=== PATIENT | male | born 1960 | race Caucasian/White ===

== ENCOUNTER 2019-04-20 14:04 | Inpatient (IN) ==
[2019-04-20] MEDS ORDERED: ACETAMINOPHEN 325 MG TABLET PO PRN (20:20)
[2019-04-20] MEDS ORDERED: ONDANSETRON 4 MG/2 ML VIAL IV PRN (20:20)
[2019-04-20] MEDS ORDERED: LACTULOSE 20 GM/30 ML UDCUP PO PRN (20:20)
[2019-04-20] MEDS ORDERED: BISACODYL 5 MG TABLET PO PRN (20:20)
[2019-04-20] MEDS ORDERED: MAGNESIUM SULF RIDER 4 GM in PREMIX 1 EACH IV PRN (20:20)
[2019-04-20] MEDS ORDERED: MAGNESIUM SULF RIDER 2 GM in PREMIX 1 EACH IV PRN (20:20)
[2019-04-20] MEDS ORDERED: guaiFENesin/DM ER 600-30 MG TABLET PO PRN (20:20)
[2019-04-20] MEDS ORDERED: MORPHINE 4 MG/1 ML VIAL IV PRN (20:20)
[2019-04-20] MEDS ORDERED: ENOXAPARIN 40 MG/0.4 ML SYRINGE SUBCUT SCH (21:00)
[2019-04-20] MEDS: dilTIAZem Drip 125 MG/125 ML PREMIX IV SCH (21:03)
[2019-04-20 21:40] LABS: Basophils # 0.1 10*3/uL (0.0-0.2); Basophils % 0.4 % (0.0-0.8); Eosinophils # 0.1 10*3/uL (0.0-0.87); Eosinophils % 0.7 % (0.00-10.9); Hematocrit 38.7 VOL% (42.0-52.0); Hemoglobin 12.8 GM/DL (14.0-18.0); Immature Granulocytes % 0.5 %; Immature Granulocytes Absolute 0.07 #; Lymphocytes # 1.9 10*3/uL (1.4-4.0); Lymphocytes % 14.1 % (21.2-54.2); Mean Corpuscular HGB Conc 33.1 GM/DL (32-36); Mean Corpuscular Volume 86.2 FL (87-102); Mean Platelet Volume 10.4 FL (9.6-12.0); Monocytes % 8.8 % (1.7-12.7); Neutrophils % 75.5 % (38.7-73.9); Platelet Count 282 T/CUMM (130-400); Red Blood Count 4.49 MC/CUMM (3.8-5.5); Red Cell Distribution Width 13.8 % (9.3-17.3); White Blood Count 13.3 T/CUMM (4-12)
[2019-04-20 21:45] LABS: Troponin I < 0.015 NG/ML (0.00-0.045)
[2019-04-20 21:57] LABS: Albumin 3.2 G/DL (3.4-5.0); Osmolality,Calculated 283.5 MOS/KG (273-304); Risk Ratio 5.09; Thyroid Stimulating Hormone 1.18 uIU/ml (0.358-3.74)
[2019-04-20] MEDS: ZALEPLON 5 MG CAPSULE PO PRN (23:03)
[2019-04-20] MEDS: diphenhydrAMINE CAP 25 MG CAPSULE PO PRN (23:13)
[2019-04-20 23:54] LABS: Troponin I < 0.015 NG/ML (0.00-0.045)
[2019-04-21 07:14] LABS: Albumin 2.9 G/DL (3.4-5.0); Bilirubin,Total 1.9 MG/DL (0.2-1.0); Calcium 8.2 MG/DL (8.5-10.1); Risk Ratio 4.81; Thyroid Stimulating Hormone 0.976 uIU/ml (0.358-3.74); Total Protein 6.2 G/DL (6.4-8.3)
[2019-04-21 07:47] LABS: Troponin I < 0.015 NG/ML (0.00-0.045)
[2019-04-21] MEDS ORDERED: AMIODARONE INJ 150 MG in DEXTROSE 5% 100 ML IV ONE (08:16)
[2019-04-21] MEDS ORDERED: AMIODARONE INJ 450 MG in DEXTROSE 5% 241 ML IV SCH (08:30)
[2019-04-21 09:11] LABS: Hepatitis B Core IgM Quant 0.08 Index; Hepatitis B Surface Ag Quant < 0.10 Index; Hepatitis B Surface Ag Result Negative (Negative); Hepatitis C Virus Ab Quant 0.05 Index; Hepatitis C Virus Ab Result Negative (Negative)
[2019-04-21] MEDS: lisinopriL 5 MG TABLET PO SCH (09:35)
[2019-04-21] MEDS: FUROSEMIDE 20 MG TABLET PO SCH (09:35)
[2019-04-21] MEDS: ENOXAPARIN 100 MG/ML SYRINGE SUBCUT SCH ×2 (09:35→22:13)
[2019-04-21] MEDS: POTASSIUM CHLORIDE 20 MEQ TABLET PO SCH (09:35)
[2019-04-21] MEDS: PANTOPRAZOLE 40 MG TABLET PO SCH (09:35)
[2019-04-21] MEDS: METOPROLOL SUCCINATE XL 50 MG TABLET PO SCH (09:35)
[2019-04-21] MEDS: CHOLECALCIFEROL 1,000 UNIT TABLET PO SCH (09:36)
[2019-04-21] MEDS: CLORAZEPATE 3.75 MG TABLET PO PRN ×2 (11:40→18:02)
[2019-04-21 13:29] LABS: % Iron Saturation 11.2 % (18-50)
[2019-04-21] MEDS ORDERED: FUROSEMIDE 40 MG/4 ML VIAL IV ONE (13:49)
[2019-04-21] MEDS: cefTRIAXone 1,000 MG in SYRINGE 1 EACH IV SCH (14:03)
[2019-04-21] MEDS ORDERED: ALBUTEROL/IPRATROPIUM 3 ML NEB RESP TX PRN (16:22)
[2019-04-21] MEDS: FUROSEMIDE 40 MG/4 ML VIAL IV SCH (16:30)
[2019-04-21] MEDS: SERTRALINE 25 MG TABLET PO SCH ×2 (16:42→22:18)
[2019-04-21] MEDS: INSULIN REGULAR 100 UNIT/ML SUBCUT SCH ×2 (16:49→22:16)
[2019-04-21] MEDS: AMIODARONE INJ 450 MG in DEXTROSE 5% 241 ML IV SCH (17:30)
[2019-04-21] MEDS ORDERED: ATORVASTATIN 10 MG TABLET PO SCH (21:00)
[2019-04-21] MEDS: FERROUS SULFATE 325 MG TABLET PO SCH (22:13)
[2019-04-21] MEDS: ZALEPLON 5 MG CAPSULE PO PRN (22:28)
[2019-04-22 04:31] LABS: Basophils % 0.1 % (0.0-0.8); Hematocrit 38.1 VOL% (42.0-52.0); Hemoglobin 12.5 GM/DL (14.0-18.0); Immature Granulocytes % 0.9 %; Immature Granulocytes Absolute 0.13 #; Lymphocytes # 1.4 10*3/uL (1.4-4.0); Lymphocytes % 9.4 % (21.2-54.2); Mean Corpuscular HGB Conc 32.8 GM/DL (32-36); Mean Corpuscular Volume 85.8 FL (87-102); Mean Platelet Volume 10.6 FL (9.6-12.0); Monocytes % 7.2 % (1.7-12.7); Neutrophils % 82.4 % (38.7-73.9); Platelet Count 294 T/CUMM (130-400); Red Blood Count 4.44 MC/CUMM (3.8-5.5); Red Cell Distribution Width 14.1 % (9.3-17.3); White Blood Count 14.4 T/CUMM (4-12)
[2019-04-22] MEDS: AMIODARONE INJ 450 MG in DEXTROSE 5% 241 ML IV SCH ×2 (05:28→21:14)
[2019-04-22 07:57] LABS: Calcium 8.1 MG/DL (8.5-10.1); Osmolality,Calculated 276.2 MOS/KG (273-304)
[2019-04-22] MEDS ORDERED: metOLazone 5 MG TABLET PO SCH (09:00)
[2019-04-22] MEDS: lisinopriL 5 MG TABLET PO SCH (10:33)
[2019-04-22] MEDS: FERROUS SULFATE 325 MG TABLET PO SCH ×2 (10:34→20:59)
[2019-04-22] MEDS: ENOXAPARIN 100 MG/ML SYRINGE SUBCUT SCH ×2 (10:34→20:59)
[2019-04-22] MEDS: PANTOPRAZOLE 40 MG TABLET PO SCH (10:34)
[2019-04-22] MEDS: POTASSIUM CHLORIDE 20 MEQ TABLET PO SCH (10:34)
[2019-04-22] MEDS: CHOLECALCIFEROL 1,000 UNIT TABLET PO SCH (10:34)
[2019-04-22] MEDS: METOPROLOL SUCCINATE XL 50 MG TABLET PO SCH (10:34)
[2019-04-22] MEDS: dilTIAZem Drip 125 MG/125 ML PREMIX IV SCH ×2 (10:35→23:49)
[2019-04-22] MEDS: INSULIN REGULAR 100 UNIT/ML SUBCUT SCH ×4 (10:35→20:57)
[2019-04-22] MEDS: POLYETHYLENE GLYCOL POWDER 17 GM PACK PO SCH (10:37)
[2019-04-22] MEDS: FUROSEMIDE 40 MG/4 ML VIAL IV SCH ×2 (11:28→17:32)
[2019-04-22] MEDS: cefTRIAXone 1,000 MG in SYRINGE 1 EACH IV SCH (12:56)
[2019-04-22 18:40] LABS: Apearance,Urine CLEAR (Clear); Bilirubin,Urine Negative (Negative); Blood, Urine Negative (Negative); Glucose,Urine (UA) Negative (Negative); Hyaline Casts,Urine 53 /LPF (0-3); Ketones,Urine Negative (Negative); Mucus,Urine Occasional /LPF (Occasional); Nitrite,Urine Negative (Negative); Protein,Urine Negative; RBC,Urine <1 /HPF (0-4); Urine Color Yellow (Yellow); Urine Specific Gravity 1.006 (1.001-1.035); Urine Urobilinogen < 2.0 EU/DL (0.2-1.0); WBC,Urine <1 /HPF (0-6)
[2019-04-22] MEDS: ZALEPLON 5 MG CAPSULE PO PRN ×2 (20:59→23:23)
[2019-04-22] MEDS: SERTRALINE 25 MG TABLET PO SCH (20:59)
[2019-04-23 05:51] LABS: Basophils % 0.1 % (0.0-0.8); Eosinophils % 0.1 % (0.00-10.9); Hematocrit 39.5 VOL% (42.0-52.0); Hemoglobin 13.2 GM/DL (14.0-18.0); Immature Granulocytes Absolute 0.14 #; Lymphocytes # 1.5 10*3/uL (1.4-4.0); Lymphocytes % 10.5 % (21.2-54.2); Mean Corpuscular HGB Conc 33.4 GM/DL (32-36); Mean Corpuscular Volume 86.1 FL (87-102); Mean Platelet Volume 10.3 FL (9.6-12.0); Monocytes % 6.7 % (1.7-12.7); NRBC # 0.04 10*3/uL; Neutrophils % 81.6 % (38.7-73.9); Platelet Count 322 T/CUMM (130-400); Red Blood Count 4.59 MC/CUMM (3.8-5.5); Red Cell Distribution Width 14.3 % (9.3-17.3); White Blood Count 14.5 T/CUMM (4-12)
[2019-04-23 06:20] LABS: Calcium 8.2 MG/DL (8.5-10.1); Osmolality,Calculated 277.4 MOS/KG (273-304)
[2019-04-23] MEDS: INSULIN REGULAR 100 UNIT/ML SUBCUT SCH (07:42)
[2019-04-23] MEDS ORDERED: DIGOXIN 0.25 MG TABLET PO ONE (07:43)
[2019-04-23] MEDS: POTASSIUM CHLORIDE 20 MEQ TABLET PO SCH (09:04)
[2019-04-23] MEDS: AMIODARONE 200 MG TABLET PO SCH ×2 (09:05→21:17)
[2019-04-23] MEDS: FERROUS SULFATE 325 MG TABLET PO SCH ×2 (09:05→21:18)
[2019-04-23] MEDS: CHOLECALCIFEROL 1,000 UNIT TABLET PO SCH (09:06)
[2019-04-23] MEDS: lisinopriL 5 MG TABLET PO SCH (09:06)
[2019-04-23] MEDS: METOPROLOL SUCCINATE XL 50 MG TABLET PO SCH (09:06)
[2019-04-23] MEDS: metOLazone 5 MG TABLET PO SCH (09:07)
[2019-04-23] MEDS: PANTOPRAZOLE 40 MG TABLET PO SCH (09:07)
[2019-04-23] MEDS: ENOXAPARIN 100 MG/ML SYRINGE SUBCUT SCH ×2 (09:08→21:18)
[2019-04-23] MEDS: FUROSEMIDE 40 MG/4 ML VIAL IV SCH ×2 (09:08→15:33)
[2019-04-23] MEDS: POLYETHYLENE GLYCOL POWDER 17 GM PACK PO SCH (09:12)
[2019-04-23] MEDS: DOBUTamine 500 MG/250 ML PREMIX IV SCH (10:15)
[2019-04-23] MEDS: DIGOXIN 0.25 MG TABLET PO SCH (13:32)
[2019-04-23] MEDS: POTASSIUM CHLORIDE 20 MEQ TABLET PO PRN (16:33)
[2019-04-23] MEDS: dilTIAZem Drip 125 MG/125 ML PREMIX IV SCH (20:30)
[2019-04-23] MEDS: diphenhydrAMINE CAP 25 MG CAPSULE PO PRN (21:23)
[2019-04-24 05:00] LABS: Basophils % 0.3 % (0.0-0.8); Eosinophils # 0.1 10*3/uL (0.0-0.87); Eosinophils % 0.8 % (0.00-10.9); Hemoglobin 14.7 GM/DL (14.0-18.0); Immature Granulocytes Absolute 0.11 #; Lymphocytes # 1.5 10*3/uL (1.4-4.0); Lymphocytes % 13.9 % (21.2-54.2); Mean Corpuscular HGB Conc 33.4 GM/DL (32-36); Mean Corpuscular Volume 84.9 FL (87-102); Mean Platelet Volume 10.5 FL (9.6-12.0); Monocytes % 7.9 % (1.7-12.7); NRBC # 0.02 10*3/uL; Neutrophils % 76.1 % (38.7-73.9); Platelet Count 281 T/CUMM (130-400); Red Blood Count 5.18 MC/CUMM (3.8-5.5)
[2019-04-24 05:46] LABS: Calcium 8.7 MG/DL (8.5-10.1); Osmolality,Calculated 276.2 MOS/KG (273-304)
[2019-04-24 05:54] LABS: Albumin 3.1 G/DL (3.4-5.0); Bilirubin,Direct 0.41 MG/DL (0.0-0.20); Bilirubin,Total 2.4 MG/DL (0.2-1.0); Total Protein 6.6 G/DL (6.4-8.3)
[2019-04-24] MEDS: POTASSIUM CHLORIDE 20 MEQ TABLET PO SCH (08:31)
[2019-04-24] MEDS: metOLazone 5 MG TABLET PO SCH (08:32)
[2019-04-24] MEDS: POTASSIUM CHLORIDE 20 MEQ TABLET PO PRN ×3 (08:32→15:09)
[2019-04-24] MEDS: CHOLECALCIFEROL 1,000 UNIT TABLET PO SCH (08:33)
[2019-04-24] MEDS: FERROUS SULFATE 325 MG TABLET PO SCH ×2 (08:33→20:44)
[2019-04-24] MEDS: AMIODARONE 200 MG TABLET PO SCH ×2 (08:33→20:44)
[2019-04-24] MEDS: METOPROLOL SUCCINATE XL 50 MG TABLET PO SCH (08:34)
[2019-04-24] MEDS: ENOXAPARIN 100 MG/ML SYRINGE SUBCUT SCH ×2 (08:34→20:44)
[2019-04-24] MEDS: PANTOPRAZOLE 40 MG TABLET PO SCH (08:34)
[2019-04-24] MEDS: FUROSEMIDE 40 MG/4 ML VIAL IV SCH ×2 (08:35→16:52)
[2019-04-24] MEDS: lisinopriL 5 MG TABLET PO SCH (08:35)
[2019-04-24] MEDS: POLYETHYLENE GLYCOL POWDER 17 GM PACK PO SCH (08:35)
[2019-04-24] MEDS: DOBUTamine 500 MG/250 ML PREMIX IV SCH ×2 (09:46→12:44)
[2019-04-24] MEDS ORDERED: DIGOXIN 0.5 MG/2 ML AMP IV ONE (10:09)
[2019-04-24] MEDS: DIGOXIN 0.25 MG TABLET PO SCH (13:58)
[2019-04-24] MEDS: dilTIAZem Drip 125 MG/125 ML PREMIX IV SCH (20:44)
[2019-04-24] MEDS: diphenhydrAMINE CAP 25 MG CAPSULE PO PRN (20:48)
[2019-04-25 05:06] LABS: Basophils % 0.2 % (0.0-0.8); Eosinophils % 0.3 % (0.00-10.9); Hematocrit 49.1 VOL% (42.0-52.0); Hemoglobin 16.4 GM/DL (14.0-18.0); Immature Granulocytes % 1.2 %; Immature Granulocytes Absolute 0.15 #; Lymphocytes # 1.3 10*3/uL (1.4-4.0); Lymphocytes % 10.7 % (21.2-54.2); Mean Corpuscular HGB Conc 33.4 GM/DL (32-36); Mean Corpuscular Volume 84.2 FL (87-102); Monocytes % 9.7 % (1.7-12.7); Neutrophils % 77.9 % (38.7-73.9); Platelet Count 311 T/CUMM (130-400); Red Blood Count 5.83 MC/CUMM (3.8-5.5); Red Cell Distribution Width 14.6 % (9.3-17.3); White Blood Count 12.3 T/CUMM (4-12)
[2019-04-25 05:49] LABS: Calcium 8.8 MG/DL (8.5-10.1); Osmolality,Calculated 272.8 MOS/KG (273-304)
[2019-04-25] MEDS: CHOLECALCIFEROL 1,000 UNIT TABLET PO SCH (09:18)
[2019-04-25] MEDS: ENOXAPARIN 100 MG/ML SYRINGE SUBCUT SCH ×2 (09:18→20:38)
[2019-04-25] MEDS: POTASSIUM CHLORIDE 20 MEQ TABLET PO SCH (09:18)
[2019-04-25] MEDS: metOLazone 5 MG TABLET PO SCH (09:18)
[2019-04-25] MEDS: AMIODARONE 200 MG TABLET PO SCH ×2 (09:19→20:37)
[2019-04-25] MEDS: lisinopriL 5 MG TABLET PO SCH (09:19)
[2019-04-25] MEDS: FERROUS SULFATE 325 MG TABLET PO SCH ×2 (09:20→20:38)
[2019-04-25] MEDS: METOPROLOL SUCCINATE XL 50 MG TABLET PO SCH (09:20)
[2019-04-25] MEDS: PANTOPRAZOLE 40 MG TABLET PO SCH (09:20)
[2019-04-25] MEDS: POTASSIUM CHLORIDE 20 MEQ TABLET PO PRN ×2 (09:20→11:09)
[2019-04-25] MEDS: FUROSEMIDE 40 MG/4 ML VIAL IV SCH ×2 (09:23→16:50)
[2019-04-25] MEDS: POLYETHYLENE GLYCOL POWDER 17 GM PACK PO SCH (09:23)
[2019-04-25] MEDS: DOBUTamine 500 MG/250 ML PREMIX IV SCH (12:56)
[2019-04-25] MEDS: DIGOXIN 0.25 MG TABLET PO SCH (13:58)
[2019-04-25] MEDS: diphenhydrAMINE CAP 25 MG CAPSULE PO PRN (20:38)
[2019-04-26 04:12] LABS: Basophils % 0.3 % (0.0-0.8); Eosinophils # 0.1 10*3/uL (0.0-0.87); Eosinophils % 0.8 % (0.00-10.9); Hematocrit 52.4 VOL% (42.0-52.0); Hemoglobin 17.5 GM/DL (14.0-18.0); Immature Granulocytes % 1.3 %; Immature Granulocytes Absolute 0.18 #; Lymphocytes # 1.8 10*3/uL (1.4-4.0); Lymphocytes % 13.4 % (21.2-54.2); Mean Corpuscular HGB Conc 33.4 GM/DL (32-36); Mean Corpuscular Volume 84.1 FL (87-102); Mean Platelet Volume 9.7 FL (9.6-12.0); Monocytes % 9.7 % (1.7-12.7); Neutrophils % 74.5 % (38.7-73.9); Platelet Count 384 T/CUMM (130-400); Red Blood Count 6.23 MC/CUMM (3.8-5.5); Red Cell Distribution Width 15.1 % (9.3-17.3); White Blood Count 13.5 T/CUMM (4-12)
[2019-04-26 05:00] LABS: Calcium 8.7 MG/DL (8.5-10.1); Osmolality,Calculated 280.7 MOS/KG (273-304)
[2019-04-26] MEDS: metOLazone 5 MG TABLET PO SCH (08:52)
[2019-04-26] MEDS: METOPROLOL SUCCINATE XL 50 MG TABLET PO SCH (08:53)
[2019-04-26] MEDS: CHOLECALCIFEROL 1,000 UNIT TABLET PO SCH (08:53)
[2019-04-26] MEDS: lisinopriL 5 MG TABLET PO SCH (08:53)
[2019-04-26] MEDS: AMIODARONE 200 MG TABLET PO SCH ×2 (08:53→21:22)
[2019-04-26] MEDS: PANTOPRAZOLE 40 MG TABLET PO SCH (08:53)
[2019-04-26] MEDS: FERROUS SULFATE 325 MG TABLET PO SCH ×2 (08:54→21:22)
[2019-04-26] MEDS: POTASSIUM CHLORIDE 20 MEQ TABLET PO SCH (08:54)
[2019-04-26] MEDS: POLYETHYLENE GLYCOL POWDER 17 GM PACK PO SCH (08:55)
[2019-04-26] MEDS: ENOXAPARIN 100 MG/ML SYRINGE SUBCUT SCH ×2 (08:55→21:22)
[2019-04-26] MEDS ORDERED: SODIUM CHLORIDE 0.9% 500 ML IV SCH (09:00)
[2019-04-26] MEDS ORDERED: ZOLPIDEM 5 MG TABLET PO PRN (09:00)
[2019-04-26] MEDS: FUROSEMIDE 40 MG/4 ML VIAL IV SCH (09:14)
[2019-04-26] MEDS: DIGOXIN 0.25 MG TABLET PO SCH (12:45)
[2019-04-27 05:40] LABS: Basophils % 0.3 % (0.0-0.8); Eosinophils # 0.2 10*3/uL (0.0-0.87); Eosinophils % 1.4 % (0.00-10.9); Hematocrit 50.2 VOL% (42.0-52.0); Hemoglobin 16.4 GM/DL (14.0-18.0); Immature Granulocytes % 1.2 %; Immature Granulocytes Absolute 0.18 #; Lymphocytes % 14.1 % (21.2-54.2); Mean Corpuscular HGB Conc 32.7 GM/DL (32-36); Mean Corpuscular Volume 85.4 FL (87-102); Mean Platelet Volume 10.1 FL (9.6-12.0); Monocytes % 9.3 % (1.7-12.7); Neutrophils % 73.7 % (38.7-73.9); Platelet Count 365 T/CUMM (130-400); Red Blood Count 5.88 MC/CUMM (3.8-5.5); Red Cell Distribution Width 14.5 % (9.3-17.3); White Blood Count 14.5 T/CUMM (4-12)
[2019-04-27 06:10] LABS: Calcium 8.8 MG/DL (8.5-10.1); Osmolality,Calculated 279.7 MOS/KG (273-304)
[2019-04-27] MEDS ORDERED: propofoL 200 MG/20 ML VIAL IV ONE (07:51)
[2019-04-27] MEDS ORDERED: ETOMIDATE 40 MG/20 ML VIAL IV ONE (07:51)
[2019-04-27] MEDS ORDERED: PHENYLEPHRINE 1 MG/10 ML SYRINGE IV ONE (07:51)
[2019-04-27] MEDS ORDERED: SODIUM CHLORIDE 0.9% 1,000 ML IV SCH (11:00)
[2019-04-27] MEDS ORDERED: ALUMINUM/MAGNES/SIMETH MAX STR 30 ML UDCUP PO PRN (12:42)
[2019-04-27] MEDS: ENOXAPARIN 100 MG/ML SYRINGE SUBCUT SCH ×2 (14:13→21:52)
[2019-04-27] MEDS: AMIODARONE 200 MG TABLET PO SCH ×2 (14:16→21:53)
[2019-04-27] MEDS: POTASSIUM CHLORIDE 20 MEQ TABLET PO SCH (14:17)
[2019-04-27] MEDS: FERROUS SULFATE 325 MG TABLET PO SCH ×2 (14:17→21:52)
[2019-04-27] MEDS: POLYETHYLENE GLYCOL POWDER 17 GM PACK PO SCH ×2 (14:18→14:27)
[2019-04-27] MEDS: lisinopriL 5 MG TABLET PO SCH (14:18)
[2019-04-27] MEDS: CHOLECALCIFEROL 1,000 UNIT TABLET PO SCH (14:19)
[2019-04-27] MEDS: METOPROLOL SUCCINATE XL 50 MG TABLET PO SCH (14:19)
[2019-04-27] MEDS: PANTOPRAZOLE 40 MG TABLET PO SCH (14:19)
[2019-04-27] MEDS: metOLazone 5 MG TABLET PO SCH (14:20)
[2019-04-27] MEDS: DIGOXIN 0.25 MG TABLET PO SCH (14:24)
[2019-04-28 05:53] LABS: Osmolality,Calculated 278.5 MOS/KG (273-304)
[2019-04-28 08:17] VITALS: BP 114/75
[2019-04-28] MEDS ORDERED: metOLazone 5 MG TABLET PO SCH (09:00)
[2019-04-28] MEDS ORDERED: AMIODARONE 200 MG TABLET PO SCH (09:00)
[2019-04-28] MEDS: FERROUS SULFATE 325 MG TABLET PO SCH (09:19)
[2019-04-28] MEDS: ENOXAPARIN 100 MG/ML SYRINGE SUBCUT SCH (09:19)
[2019-04-28] MEDS: METOPROLOL SUCCINATE XL 50 MG TABLET PO SCH (09:19)
[2019-04-28] MEDS: CHOLECALCIFEROL 1,000 UNIT TABLET PO SCH (09:19)
[2019-04-28] MEDS: POTASSIUM CHLORIDE 20 MEQ TABLET PO SCH (09:20)
[2019-04-28] MEDS: lisinopriL 5 MG TABLET PO SCH (09:20)
[2019-04-28] MEDS: POLYETHYLENE GLYCOL POWDER 17 GM PACK PO SCH (09:21)
[2019-04-28] MEDS: PANTOPRAZOLE 40 MG TABLET PO SCH (09:21)
[2019-04-28] MEDS: FUROSEMIDE 20 MG TABLET PO SCH (09:22)
== END 2019-04-28 09:49 | disposition home or self-care (01) | DRG 308 ==
LOC: N.TELES 18:46 → SUPCPDRO 18:46
PROVIDERS: ADMIT Internal Medicine Cardiovascular Disease; ATTEND Internal Medicine Cardiovascular Disease